=== PATIENT | female | born 1950 | race Caucasian/White ===

== ENCOUNTER → 2021-01-28 | Outpatient (CLI) | payer MEDICARE, OTHER ==
[~2021-01-28] MED LIST: AMITRIPTYLINE H10 M3 PO; BIOTENE MOIST44.3 ML MM; BUTALB-APAP-CA1 EACH PO; CARISOPRODOL 3350 MG PO; COLACE100 MG PO; CYMBALTA30 MG PO; CYMBALTA60 MG PO; DENTAGEL56 GM DT; DIFLUCAN200 MG PO; DITROPAN XL10 M1; DOXEPIN 10 MG C10 M1 PO; HYDROCODONE-AP1 EAC6 PO; LEVOFLOXACIN750 MG PO; LEVOTHYROXIN0.025 MG PO; LEVOTHYROXINE0.05 MG PO; LIDOCAINE VISC100 M1 MM; LINZESS145 MCG PO; LUBRICANT 0.5-1 EACH OP; LYRICA 50 MG50 MG PO; LYRICA150 MG PO; OMEPRAZOLE40 MG PO; ONDANSETRON HCL4 M2 PO; PYRIDIUM200 MG PO; RANITIDINE 150150 M1 PO; REMERON15 MG PO; RESTASIS1 EACH OPHTHALMIC; TRAMADOL 50 MG50 MG; VOLTAREN50 MG PO; WELLBUTRIN 100100 M1; WELLBUTRIN SR150 MG PO; XANAX1 MG PO
== END ==
LOC: M.LAB 10:13
PROVIDERS: ATTEND Internal Medicine Gastroenterology
DX: Z01.812 Encounter for preprocedural laboratory examination (principal); Z20.822 Contact with and (suspected) exposure to COVID-19

== ENCOUNTER → 2021-02-04 | Outpatient (CLI) | payer MEDICARE, OTHER | LOC: M.RAD 09:40 | PROVIDERS: ATTEND Internal Medicine Gastroenterology | DX: K22.89 Other specified disease of esophagus (principal); R13.19 Other dysphagia ==

== ENCOUNTER → 2021-02-14 | Outpatient (CLI) | payer MEDICARE, OTHER | LOC: M.NUC 02-01 14:31 | PROVIDERS: ATTEND Internal Medicine Gastroenterology | DX: K31.89 Other diseases of stomach and duodenum (principal) ==